=== PATIENT | female | born 1970 | race Caucasian/White ===

== ENCOUNTER → 2020-05-09 | Outpatient (CLI) | payer OTHER ==
[2020-05-09 08:45] LABS: BILIRUBIN,URINE NEG (NEG); CLARITY,URINE HAZY; COLOR,URINE STRAW; GLUCOSE,URINE NEG (NEG)
[2020-05-09 08:46] LABS: NITRITE,URINE NEG (NEG); UROBILINOGEN,URINE 0.2 mg/dL (0.2 mg/dL)
[2020-05-09 08:47] LABS: BACTERIA,URINE 0 /HPF (0-FEW); SQUAMOUS EPITHELIAL CELL,UR FEW /LPF
== END | disposition home or self-care (01) ==
LOC: LAB 07:56 → MERGE 07:56
PROVIDERS: ATTEND Internal Medicine
DX: R10.31 Right lower quadrant pain (principal)
CPT/HCPCS: 81001

== ENCOUNTER 2020-12-13 21:43 | Emergency (ER) | payer OTHER ==
[~2020-12-13] VITALS: Ht 162.6 cm; Wt 84.3 kg
[2020-12-13 22:00] VITALS: BP 146/96
--- NOTE | 2020-12-13 22:09 | PHYS DOC ---
Adult General Chief Complaint Chief Complaint: MECHANICAL FALL HPI HPI Patient is a 50-year-old female who presents with a laceration to the back of her head. States they were doing repairs on the house, and she was coming down off a ladder, slipped and fell from essentially the bottom rung and hit her head on the wooden step. States she did not lose consciousness. Denies headache, change in vision, neck pain, chest pain, shortness of breath, nausea, vomiting. States it has been longer than 5 years for tetanus vaccination. Denies any other injuries. States this happened about 3 hours before coming to the emergency department. States that she was getting, but her made her. Review of Systems Review of Systems Review of systems otherwise unremarkable except noted in HPI Physical Exam Physical Exam Constitutional: Well developed, well nourished, no acute distress, non-toxic appearance. [] HENT: Patient has an approximately 3 cm superficial laceration on the occipital portion of the scalp, no hemotympanums Eyes: PERRLA, conjunctiva normal, no discharge. [] Neck: Normal range of motion, no tenderness, supple, no stridor. [] Back: No tenderness, Extremities: No tenderness, ROM intact, Neurologic: Alert and oriented X 3, normal motor function, normal sensory function, no focal deficits noted. [] Psychologic: Affect normal, judgement normal, mood normal. [] EKG EKG [] Radiology/Procedures Radiology/Procedures Wound is approximately 3 cm and superficial. Bleeding controlled. Wound cleaned with sterile saline. L ET placed for topical anesthesia. Anesthesia achieved. 5 odette placed. Patient tolerated procedure well. [] Heart Score C/O Chest Pain: No Risk Factors: Risk Factors: DM, Current or recent (<one month) smoker, HTN, HLP, family history of CAD, obesity. Risk Scores: Risk Factors: DM, Current or recent (<one month) smoker, HTN, HLP, family history of CAD, obesity. Course & Med Decision Making Course & Med Decision Making Patient is a 50-year-old female presents with occipital laceration Vital signs not concerning. Physical exam noted above. Tetanus status updated. L ET placed for topical anesthesia Wound lavaged with sterile saline. Repaired with odette. Patient tolerated well. Advised to follow-up with primary care physician in 7 to 10 days for wo und check and suture removal. He strict return precautions to the ED. Patient grateful, verbalized understanding and agreed with plan of discharge. [] Dragon Disclaimer Dragon Disclaimer This electronic medical record was generated, in whole or in part, using a voice recognition dictation system. Departure Departure: Impression: Primary Impression: Laceration of head Disposition: 01 DC HOME SELF CARE/HOMELESS Condition: GOOD Referrals: TRACY SENIOR MD (PCP) Patient Instructions: Laceration Care, Adult, Wound Care, [id number] Additional Instructions: Please read all the attached information. You can use Tylenol, ibuprofen, ice and/or Benadryl as needed for pain control. Please call your primary care physician first thing Tuesday morning to schedule a wound check and staple removal in 7 to 10 days. Please come back to the emergency department immediately with any new or concerning symptoms or if you cannot get into your primary care physician. PINA ZAMAN MD Dec 13, 2020 22:09
[2020-12-13] MEDS ORDERED: LIDOCAINE/EPI/TETRACAINE TOPICAL GEL 3 ML. TP ONE (22:30)
[2020-12-13] MEDS ORDERED: DIPH,PERTUSS(ACELL),TET VAC/PF 0.5 ML SYRINGE. VAX IM ONE (23:00)
[2020-12-13] MEDS ORDERED: oxyCODONE/APAP 5/325 1 TAB TABLET PO ONE (23:00)
== END 2020-12-13 23:00 | disposition home or self-care (01) ==
LOC: ER 21:43
DX: S01.01XA Laceration without foreign body of scalp, initial encounter (principal); W01.0XXA Fall on same level from slipping, tripping and stumbling without subsequent striking against object, initial encounter; Y93.89 Activity, other specified; Y92.89 Other specified places as the place of occurrence of the external cause; Y99.8 Other external cause status
CPT/HCPCS: 12002; 90471; 90715; 99283